=== PATIENT | female | born 1970 | race Caucasian/White ===

== ENCOUNTER → 2018-09-23 | Outpatient (CLI) | payer OTHER ==
--- NOTE | 2018-09-28 11:58 | MAM ---
EXAM DESCRIPTION: 3D Screening BILATERAL : Digital Mammography. CLINICAL HISTORY: 48 years Female ANNUAL SCREENING . No complaints or personal history of breast cancer. Remote family history of breast cancer. Childbirth. Hysterectomy 5 years ago. No HRT. Lifetime risk of developing breast cancer (Tyrer-Cuzick model)(%): Not calculated COMPARISON: 2-D digital screening bilateral mammography 10/09/2014. Diagnostic 2-D left breast mammography 10/23/2014. No prior reports available. TECHNIQUE: Bilateral CC and MLO projection full-field images, digital tomosynthesis mammographic technique. Bilateral digital 2-D full-field MLO images. CAD not available for tomosynthesis or 2-D images. FINDINGS: The breast parenchymal density pattern is: Extremely dense breast tissue, which lowers the sensitivity of mammography.. Scattered solitary microcalcifications and some grouped calcifications associated with the dense tissue in the mid and lateral right breast. Mass density in the lower outer quadrant of the posterior right breast has decreased in size since the prior study. Similar appearance of dense breast tissue and microcalcifications in the left breast which demonstrates slightly more microcalcifications. A heterogeneous cluster of microcalcifications can be seen in the 9:00 position of the left breast approximately 5 to 6 cm from the nipple. Not as well seen on the prior study. No definite mass. No new focal, stellate mass or density, focal asymmetry , and no suspicious microcalcifications right breast. IMPRESSION: BI-RADS CATEGORY: 0 - INCOMPLETE- Need additional imaging evaluation. FOLLOW-UP: Recall for additional imaging: Biplane magnification full-field images left breast region of interest lateral breast. Full-field left breast LM tomosynthesis. Optional targeted left breast ultrasound depending on diagnostic images.. Written communication concerning the IMPRESSION and Follow-up, will be mailed to the patient and referring health care provider. Electronically signed by: Oscar Salguero MD 09/28/2018 11:56 AM CDT
== END ==
LOC: MAMMO 12:04
PROVIDERS: ATTEND Family Medicine
DX: Z12.31 Encounter for screening mammogram for malignant neoplasm of breast (principal)